=== PATIENT | male | born 1955 | race Two or more races ===

== ENCOUNTER 2022-06-24 10:29 | Outpatient (REF) | payer MEDICARE, MEDICAID, SELFPAY ==
[2022-06-24 11:39] LABS: MANUAL DIFF FLAG NO
[2022-06-24 11:55] LABS: Basophils Percent Auto 0.8 % (0-2); Eosinophils Absolute Auto 0.7 X10*3/uL (0.0-0.4); Eosinophils Percent Auto 12.5 % (0-4); Hematocrit 45.6 % (42.0-52.0); Imm Gran Abs Auto 0.02 X10*3/uL (0.00-0.03); Imm Gran Pct Auto 0.4 % (0.0-0.4); Lymphocytes Absolute Auto 1.4 X10*3/uL (1.2-4.9); Lymphocytes Percent Auto 26.6 % (20-40); Mean Corpuscular HGB Conc 32.9 g/dl (31.0-36.0); Mean Corpuscular Hemoglobin 28.9 pg (27.0-33.0); Mean Corpuscular Volume 87.9 fL (80.0-98.0); Mean Platelet Volume 9.5 fL (9.4-12.4); Monocytes Absolute Auto 0.5 X10*3/uL (0.1-1.2); Monocytes Percent Auto 9.4 % (2-11); Neutrophils Absolute Auto 2.7 x10*3/uL (2.0-8.3); Neutrophils Percent Auto 50.3 % (45-73); Platelet Count 242 X10*3/uL (160-400); Red Blood Count 5.19 X10*6/uL (4.60-5.80); White Blood Count 5.3 X10*3/uL (4.8-10.8)
[2022-06-24 12:28] LABS: Alanine Aminotransferase 23 U/L (0-40); Anion Gap 11 (12-20); Aspartate Amino Transferase 20 U/L (5-37); Blood Urea Nitrogen 14 mg/dL (9-16); Carbon Dioxide 27 mmol/L (22-29); Chloride 106 mmol/L (96-108); Cholesterol 189 mg/dL; Estimated Glomerular Filt Rate > 60; Glucose Fasting 85 mg/dL (60-99); HDL Cholesterol 44 mg/dL; LDL Cholesterol Calculated 125 mg/dl; Potassium 4.3 mmol/L (3.3-5.1); Sodium 140 mmol/L (135-145); Triglycerides 100 mg/dL
== END 2022-06-24 10:30 | disposition home or self-care (01) ==
LOC: HO.HMGCLDS 10:29
PROVIDERS: PCP Internal Medicine; Visit Provider Internal Medicine
DX: Z00.01 Encounter for general adult medical examination with abnormal findings (principal); K22.4 Dyskinesia of esophagus; K21.9 Gastro-esophageal reflux disease without esophagitis; D12.6 Benign neoplasm of colon, unspecified; E66.9 Obesity, unspecified; Z12.5 Encounter for screening for malignant neoplasm of prostate
CPT/HCPCS: 36415; 80048; 80061; 84153; 84450; 84460; 85025

== ENCOUNTER 2024-01-01 10:45 | Outpatient (AMB) | payer MEDICARE, MEDICAID, SELFPAY ==
--- NOTE | 2024-01-01 11:27 | MHC.PC.OV ---
Vital Signs 01/01/24 11:28 Height 5 ft 4 in Weight 191 lb BMI 32.8 BP 146/82 H Blood Pressure Location Rt brachial Position Sitting Pulse 68 Pulse Source Pulse Oximeter Pulse Oximetry (%) 98 Oxygen Delivery Method Room Air Intake Visit Reasons: ANNUAL Intake Note: Pt is here today for his PE: Last colonoscopy 08/23/18 Allergies acetaminophen [Percocet] Allergy (Unknown, Verified 01/01/24 11:35) stomach upset oxycodone [Percocet] Allergy (Unknown, Verified 01/01/24 11:35) stomach upset Medication List - Last Reconciled 01/01/24 by Dang Almonte MD omeprazole 20 mg PO DAILY Tobacco use date assessed: 01/01/24 Fall risk assessment: No Falls in past year Last assessed Fall Risk: 01/01/24 Dental Screening Dental Screen Date: 01/01/24 Did you have a dental visit in the last 12 months?: No Did you have a dental problem in the last 6 months where you did not have access to dental care?: No HPI ANNUAL HPI Details 68-year-old male, with GERD, currently on omeprazole 20 mg taken once a day, prescribed by Dr. Diaz, here today for physical exam. His last screening colonoscopy was done on 08/23/[address] Diaz, with fragments of tubular adenoma removed, repeat colonoscopy due again this year. Feels well, no complaints at present time. He does not want to get any vaccines [facility] Medical History (Updated 01/08/24 @ 00:27 by Dang Almonte MD) Essential hypertension History of adenomatous polyp of colon Obesity (BMI 30.0-34.9) Esophageal dysmotility Immunization refused Iron deficiency anemia GERD without esophagitis Hiatal hernia Tubular adenoma of colon Family History Brother Substance use disorder Brother Substance use disorder Mother Mental health disorder Social History Housing: Apartment Patient Tobacco Use Status: Former Tobacco user e-Cigarette/Vaping Use: Never Used service: No Current occupational status: retired Cognitive needs: No Hearing needs: No Vision needs: Yes Questionnaire PHQ-9 Over the last 2 weeks, how often have you been bothered by any of the following problems? 1. Little interest or pleasure in doing things: not at all 2. Feeling down, depressed, or hopeless: not at all 3. Trouble falling or staying asleep, or sleeping too much: not at all 4. Feeling tired or having little energy: not at all 5. Poor appetite or overeating: not at all 6. Feeling bad about yourself - or that you are a failure or have let yourself or your family down: not at all 7. Trouble concentrating on things, such as reading the newspaper or watching television: not at all 8. Moving or speaking so slowly that other people could have noticed. Or the opposite - being so fidgety or restless that you have been moving around a lot more than usual: not at all 9. Thoughts that you would be better off or of hurting yourself in some way: not at all Total score: 0 Depression Screening Interpretation: Negative Depression Screening Done: Yes 63915 - PHQ-9 Billing: Yes Source: Developed by Drs. Toby Shrestha, Liza Aviles, Hema Vila and colleagues, with an educational alfreda from [employer]. Thrive Questionnaire Date Thrive assessed: 01/01/24 I am a: Patient What is your living situation today?: I have a steady place to live Within the past 12 months, did the food you bought not last and you didn't have the money to get more?: Never true Within the past 12 months, did you worry whether your food would run out before you got money to buy more?: Never true Do you have trouble paying for medicines?: No Do you have trouble getting transportation to medical appointments?: No Do you have trouble paying your heating and electricity bill?: No Do you have trouble taking care of your child, family member or friend?: No Do you have trouble with day-to-day activities such as bathing, preparing meals, shopping, managing finances, etc.?: No Are you currently unemployed and looking for a job?: No Are you interested in more education?: No THRIVE Score: 0 AUDIT C Alcohol Use Questionnaire (AUDIT-C) 1. How often do you have a drink containing alcohol?: Never Total Score: 0 LE-7 AMB Questionnaire LE-7 Date LE - 7 assessed: 01/01/24 Feeling nervous, anxious, or on edge: 0 = Not at all Not being able to stop or control worryin = Not at all Worrying too much about different things: 0 = Not at all Trouble relaxin = Not at all Being so restless that it is hard to sit still: 0 = Not at all Becoming easily annoyed or irritable: 0 = Not at all Feeling afraid as if something awful might happen: 0 = Not at all Total LE-7 score (0-4 normal; 5-9 mild; 10-14 moderate; 15-21 severe): 0 Source: Developed by Drs. Toby Shrestha, Liza Aviles, Hema Vila and colleagues, with an educational alfreda from [employer]. LE-7 Assessment Billing LE-7 Assessment Tool: LE-7 Assessment 24146 Review of Systems Const Reports no additional complaints, Denies fatigue, Denies headache(s) and Denies weakness Eyes Details: Has an appointment with [facility] for his routine eye checks Reports blurry vision ENT Denies dysphagia, Denies dizziness and Denies headache(s) Card Denies chest pain, Denies lightheadedness, Denies palpitations and Denies dyspnea Resp Denies chest congestion, Denies cough, Denies dyspnea and Denies wheezing GI Denies melena, Denies hematochezia, Denies change in bowel habits, Denies dysphagia and Reports heartburn (Takes omeprazole which has been helping control) Denies hematuria, Denies difficulty urinating, Denies dysuria, Denies urinary frequency and Denies urinary urgency Musc Reports no additional complaints Skin/Breast Denies breast pain, Denies breast mass, Denies lesions and Denies rash Neuro Denies dizziness, Denies headache(s) and Denies weakness Psych Reports no additional complaints Endo Denies fatigue, Denies polydipsia, Denies polyuria and Denies palpitations Davidson/Lymph Denies easy bruising Aller/Immun Denies seasonal rhinorrhea and Denies wheezing Physical exam (Primary Care) Vital Signs: Last Vital Signs Pulse 68 01/01/24 11:28 BP 146/82 H 01/01/24 11:28 Pulse Ox 98 01/01/24 11:28 Oxygen Delivery Method Room Air 01/01/24 11:28 BMI result Body Mass Index 32.8 Tobacco/Smoking Status: Tobacco use Status Tobacco use date assessed 01/01/24 01/01/24 11:30 Patient Tobacco Use Status Former Tobacco user 01/01/24 11:30 e-Cigarette/Vaping Use Never Used 01/01/24 11:30 PHQ-9: PHQ-9 Score PHQ-9: Total score 0 01/01/24 11:38 Depression Screening Interpretation: Negative Thrive Assessment: Date of Thrive Assessment Date Thrive assessed 01/01/24 01/01/24 11:30 Const General: no acute distress and alert Nutritional Appearance: obese Orientation/consciousness: patient oriented x3 HENMT Head: Yes normal to inspection and Yes atraumatic Ears: external ears normal, TM's normal bilaterally and EAC's normal General nose exam: Normal external nose present and No nasal discharge present Face and sinus: Yes face symmetric Mouth: Normal oral and palatal mucosa present, oropharynx normal and moist mucous membranes Eyes General: appearance normal, both eyes and all related structures Neck Neck: Yes full ROM, Yes no lymphadenopathy and Yes supple Thyroid: Thyroid normal Chest Chest palpation & inspection: normal inspection of the chest Resp Effort & Inspection: normal respiratory effort and able to speak in complete sentences Auscultation: clear to auscultation bilaterally Cardio Rate: regular rate Rhythm: regular rhythm Heart sounds: S1 normal heart sound present and S2 normal heart sound present GI Inspection: Yes obesity Palpation (GI): Soft to palpation, nontender, no guarding and no masses Auscultation: normal bowel sounds General: Yes no CVA tenderness Male General Exam: Yes normal external exam Back/Spine/Pelvis Back: no CVA tenderness and No back tenderness Skin General skin exam: no rashes or lesions noted Neuro General: patient oriented x3, gait normal, moves all extremities, Normal light touch and pain sensation, no focal motor deficits and CN's II-XI intact bilaterally Extrem General: Yes full ROM, Yes no joint enlargement and Yes normal gait Psych Appearance: grossly normal Mental Status: mental status grossly normal Speech and movement: Normal speech and movement present Affect: normal affect Attitude: cooperative Thought process: Normal thought process present Coding Level of Care Code Est Pt Prev Care >65y(27402) Diagnoses Annual visit for general adult medical examination with abnormal findings Z00.01 Essential hypertension I10 GERD without esophagitis K21.9 History of adenomatous polyp of colon Z86.0101 Obesity (BMI 30.0-34.9) E66.9 Additional Codes LE-7 Assessment Billing - LE-7 Assessment Tool: LE-7 Assessment 16203 ([id number]) Assessment & Plan Assessment & Plan (1) Annual visit for general adult medical examination with abnormal findings: Code(s): Z00.01 - Encounter for general adult medical examination with abnormal findings Plan: Will check appropriate labs. Recommended dental visit every 6 months and regular eye exams, at least every 2 years. Take adequate calcium in diet and vitamin-D 3 at 2000 IU per cap once a day, in addition to weight-bearing exercises to help maintain good muscle tone and weight control. Instructed to do self testicular exam to check for any mass.. Patient declines all vaccinations. Be he states he will be scheduling an appointment already with Dr. Diaz this year to discuss about getting another repeat colonoscopy screening (2) Essential hypertension: Code(s): I10 - Essential (primary) hypertension Category: Medical Plan: Blood pressure has been elevated. Patient currently asymptomatic. Will start him on lisinopril 5 mg per tablet taken once a day in a.m.. Discussed possible side effects of medication which may include a dry cough, swelling, rash. See nurse navigator in a month to check blood pressure. (3) GERD without esophagitis: Code(s): K21.9 - Gastro-esophageal reflux disease without esophagitis Category: Medical Plan: Followed by Dr. Diaz, currently on omeprazole. (4) History of adenomatous polyp of colon: Code(s): Z86.0101 - Personal history of adenomatous and serrated colon polyps Category: Medical Plan: Due for repeat colonoscopy screening this year with Dr. Diaz. Patient states he will call his office and schedule an appointment (5) Obesity (BMI 30.0-34.9): Code(s): E66.9 - Obesity, unspecified Category: Medical Plan: Discussed need to increase activity and wt reduction. Recommended focusing on improving your health instead of dieting. : Eat Mediterranean diet, limit foods high in fat, sugar, and calories, eat slowly, pay attention to portion sizes, plan your meals ahead of time, start regular physical activity 150 minutes of moderate intensity exercise or 90 minutes/week of vigorous exercise and increase water intake. Orders: Orders Complete Blood Count Auto Diff 01/01/24 E66.9 - Obesity, unspecified, K21.9 - Gastro-esophageal reflux disease without esophagitis, Z00.01 - Encounter for general adult medical examination with abnormal findings, Z12.5 - Encounter for screening for malignant neoplasm of prostate, Z13.220 - Encounter for screening for lipoid disorders, Z86.0101 - Personal history of adenomatous and serrated colon polyps Lipid Panel 01/01/24 E66.9 - Obesity, unspecified, K21.9 - Gastro-esophageal reflux disease without esophagitis, Z00.01 - Encounter for general adult medical examination with abnormal findings, Z12.5 - Encounter for screening for malignant neoplasm of prostate, Z13.220 - Encounter for screening for lipoid disorders, Z86.0101 - Personal history of adenomatous and serrated colon polyps Aspartate Amino Transferase 01/01/24 E66.9 - Obesity, unspecified, K21.9 - Gastro-esophageal reflux disease without esophagitis, Z00.01 - Encounter for general adult medical examination with abnormal findings, Z12.5 - Encounter for screening for malignant neoplasm of prostate, Z13.220 - Encounter for screening for lipoid disorders, Z86.0101 - Personal history of adenomatous and serrated colon polyps Basic Metabolic Panel Fasting 01/01/24 E66.9 - Obesity, unspecified, K21.9 - Gastro-esophageal reflux disease without esophagitis, Z00.01 - Encounter for general adult medical examination with abnormal findings, Z12.5 - Encounter for screening for malignant neoplasm of prostate, Z13.220 - Encounter for screening for lipoid disorders, Z86.0101 - Personal history of adenomatous and serrated colon polyps PSA,Total (Free>4and<10) 01/01/24 E66.9 - Obesity, unspecified, K21.9 - Gastro-esophageal reflux disease without esophagitis, Z00.01 - Encounter for general adult medical examination with abnormal findings, Z12.5 - Encounter for screening for malignant neoplasm of prostate, Z13.220 - Encounter for screening for lipoid disorders, Z86.0101 - Personal history of adenomatous and serrated colon polyps Alanine Aminotransferase 01/01/24 E66.9 - Obesity, unspecified, K21.9 - Gastro-esophageal reflux disease without esophagitis, Z00.01 - Encounter for general adult medical examination with abnormal findings, Z12.5 - Encounter for screening for malignant neoplasm of prostate, Z13.220 - Encounter for screening for lipoid disorders, Z86.0101 - Personal history of adenomatous and serrated colon polyps Vitamin D 25-OH Total 01/01/24 E66.9 - Obesity, unspecified, K21.9 - Gastro-esophageal reflux disease without esophagitis, Z00.01 - Encounter for general adult medical examination with abnormal findings, Z12.5 - Encounter for screening for malignant neoplasm of prostate, Z13.220 - Encounter for screening for lipoid disorders, Z86.0101 - Personal history of adenomatous and serrated colon polyps Medications: New lisinopril 5 mg PO DAILY 30 tabs 1RF
[2024-01-01 11:28] VITALS: BP 146/82; PULSE 68; O2SAT 98; BMI 32.8
== END 2024-01-01 11:59 | disposition home or self-care (01) ==
LOC: HO.HMCC 10:46
PROVIDERS: PCP Internal Medicine; Visit Provider Internal Medicine
DX: Z00.00 Encounter for general adult medical examination without abnormal findings (principal); I10 Essential (primary) hypertension; E66.9 Obesity, unspecified; Z68.32 Body mass index [BMI] 32.0-32.9, adult; K21.9 Gastro-esophageal reflux disease without esophagitis; Z86.0101 Personal history of adenomatous and serrated colon polyps

== ENCOUNTER → 2024-01-01 10:45 | Outpatient (BNVA) | payer MEDICARE, MEDICAID, SELFPAY | PROVIDERS: PCP Internal Medicine; Visit Provider Internal Medicine | DX: Z00.01 Encounter for general adult medical examination with abnormal findings (principal); I10 Essential (primary) hypertension; K21.9 Gastro-esophageal reflux disease without esophagitis; E66.9 Obesity, unspecified; Z86.0101 Personal history of adenomatous and serrated colon polyps | CPT/HCPCS: 96127; 99397 ==

== ENCOUNTER 2024-01-31 07:36 | Outpatient (REF) | payer MEDICARE, MEDICAID, SELFPAY ==
[2024-01-31 10:17] LABS: MANUAL DIFF FLAG NO
[2024-01-31 10:31] LABS: Basophils Absolute Auto 0.1 X10*3/uL (0.0-0.2); Basophils Percent Auto 0.8 % (0-2); Eosinophils Absolute Auto 0.7 X10*3/uL (0.0-0.4); Hematocrit 44.3 % (42.0-52.0); Hemoglobin 14.7 g/dl (14.0-18.0); Imm Gran Abs Auto 0.02 X10*3/uL (0.00-0.03); Imm Gran Pct Auto 0.3 % (0.0-0.4); Lymphocytes Absolute Auto 1.8 X10*3/uL (1.2-4.9); Lymphocytes Percent Auto 29.1 % (20-40); Mean Corpuscular HGB Conc 33.2 g/dl (31.0-36.0); Mean Corpuscular Hemoglobin 29.1 pg (27.0-33.0); Mean Corpuscular Volume 87.7 fL (80.0-98.0); Mean Platelet Volume 9.7 fL (9.4-12.4); Monocytes Absolute Auto 0.5 X10*3/uL (0.1-1.2); Monocytes Percent Auto 8.7 % (2-11); Neutrophils Absolute Auto 3.1 x10*3/uL (2.0-8.3); Neutrophils Percent Auto 50.1 % (45-73); Platelet Count 219 X10*3/uL (160-400); Red Blood Count 5.05 X10*6/uL (4.60-5.80); Red Cell Distribution Width 14.5 % (11.0-16.0); White Blood Count 6.1 X10*3/uL (4.8-10.8)
[2024-01-31 11:09] LABS: PSA,Total (Free>4and<10) 0.58 ng/mL (0.00-4.00)
[2024-01-31 11:20] LABS: Alanine Aminotransferase 29 U/L (0-40); Anion Gap 8 (12-20); Aspartate Amino Transferase 26 U/L (5-37); Blood Urea Nitrogen 16 mg/dL (9-16); Carbon Dioxide 28 mmol/L (22-29); Chloride 110 mmol/L (96-108); Cholesterol 164 mg/dL (<200); Estimated Glomerular Filt Rate > 60; Glucose Fasting 93 mg/dL (60-99); HDL Cholesterol 46 mg/dL (>40); LDL Cholesterol Calculated 104 mg/dL (<100); Potassium 4.1 mmol/L (3.3-5.1); Sodium 142 mmol/L (135-145); Triglycerides 73 mg/dL (<150); Vitamin D 25-OH Total 63.1 ng/mL (>30)
== END 2024-01-31 07:37 | disposition home or self-care (01) ==
LOC: HO.HMGCLDS 07:36
PROVIDERS: PCP Internal Medicine; Visit Provider Internal Medicine
DX: Z00.01 Encounter for general adult medical examination with abnormal findings (principal); Z13.220 Encounter for screening for lipoid disorders; Z12.5 Encounter for screening for malignant neoplasm of prostate; E66.9 Obesity, unspecified; Z86.0101 Personal history of adenomatous and serrated colon polyps; K21.9 Gastro-esophageal reflux disease without esophagitis
CPT/HCPCS: 36415; 80048; 80061; 82306; 84153; 84450; 84460; 85025

== ENCOUNTER 2024-07-03 12:00 | Outpatient (AMB) | payer MEDICARE, MEDICAID, SELFPAY ==
--- NOTE | 2024-07-03 12:14 | A.OFFPC_ITS ---
Vital Signs 07/03/24 12:17 07/03/24 12:41 Height 5 ft 4 in Weight 187 lb BMI 32.1 BP 142/80 H 135/80 Blood Pressure Location Rt brachial Rt brachial Position Sitting Sitting Respiration 16 Pulse 75 Pulse Source Pulse Oximeter Temp 98.0 F Temp Source Oral Pulse Oximetry (%) 97 Oxygen Delivery Method Room Air Intake Visit Reasons: Rt eye cataract 07/09/Lt eye 08/01 Dr. Caldwell Intake Note: Pt is here today for Pre Op clearance for right eye cataract surgery on 07/09/24 and 08/01/[address] Caldwell. Allergies acetaminophen [Percocet] Allergy (Unknown, Verified 07/03/24 12:37) stomach upset oxycodone [Percocet] Allergy (Unknown, Verified 07/03/24 12:37) stomach upset Medication List - Last Reconciled 07/03/24 by Dang Almonte MD omeprazole 20 mg PO DAILY Tobacco use date assessed: 07/03/24 Fall risk assessment: No Falls in past year Last assessed Fall Risk: 07/03/24 Dental Screening Dental Screen Date: 07/03/24 Did you have a dental visit in the last 12 months?: No Did you have a dental problem in the last 6 months where you did not have access to dental care?: No Was dental information given to patient?: No HPI Rt eye cataract 07/09/Lt eye 08/01 Dr. Caldwell HPI Details 68-year-old male with history of hyperte nsion, and esophageal dysmotility, iron-deficiency anemia, chronic GERD, here today for preoperative examination for cataract surgery OS, scheduled for 07/09/2024, requested by Dr. Caldwell. He states that he has been feeling well except for an occasional episodes of heartburn. Requesting refill on his omeprazole. Blood pressure elevated today, has not been taking his lisinopril for the last several months now. Denies headache, chest pain, lightheadedness, or shortness of breath. He is not on any blood thinners, no other complaints noted at present time He is due for repeat colonoscopy, due to history of adenomatous polyp of colon removed on last procedure done in 2019. Patient however would like to hold off on getting a referral to get repeat colonoscopy done. [facility] Medical History Essential hypertension History of adenomatous polyp of colon Obesity (BMI 30.0-34.9) Esophageal dysmotility Immunization refused Iron deficiency anemia GERD without esophagitis Hiatal hernia Tubular adenoma of colon Family History Brother Substance use disorder Brother Substance use disorder Mother Mental health disorder Social History Housing: Apartment Patient Tobacco Use Status: Former Tobacco user e-Cigarette/Vaping Use: Never Used service: No Current occupational status: retired Cognitive needs: No Hearing needs: No Vision needs: Yes Questionnaire PHQ-9 Over the last 2 weeks, how often have you been bothered by any of the following problems? 1. Little interest or pleasure in doing things: not at all 2. Feeling down, depressed, or hopeless: not at all 3. Trouble falling or staying asleep, or sleeping too much: not at all 4. Feeling tired or having little energy: not at all 5. Poor appetite or overeating: not at all 6. Feeling bad about yourself - or that you are a failure or have let yourself or your family down: not at all 7. Trouble concentrating on things, such as reading the newspaper or watching television: not at all 8. Moving or speaking so slowly that other people could have noticed. Or the opposite - being so fidgety or restless that you have been moving around a lot more than usual: not at all 9. Thoughts that you would be better off or of hurting yourself in some way: not at all Total score: 0 Depression Screening Interpretation: Negative Depression Screening Done: Yes 61374 - PHQ-9 Billing: Yes Source: Developed by Drs. Toby Shrestha, Liza Aviles, Hema Vila and colleagues, with an educational alfreda from [employer]. Thrive Questionnaire Date Thrive assessed: 07/03/24 I am a: Patient What is your living situation today?: I have a steady place to live Within the past 12 months, did the food you bought not last and you didn't have the money to get more?: Never true Within the past 12 months, did you worry whether your food would run out before you got money to buy more?: Never true Do you have trouble paying for medicines?: No Do you have trouble getting transportation to medical appointments?: No Do you have trouble paying your heating and electricity bill?: No Do you have trouble taking care of your child, family member or friend?: No Do you have trouble with day-to-day activities such as bathing, preparing meals, shopping, managing finances, etc.?: No Are you currently unemployed and looking for a job?: No Are you interested in more education?: No Please select the resources that you would like help with: None Currently or been in a relationship where the following occur: No concerns reported THRIVE Score: 0 AUDIT C Alcohol Use Questionnaire (AUDIT-C) 1. How often do you have a drink containing alcohol?: Never 3. How often do you have six or more drinks on one occasion?: Never Total Score: 0 Score Reviewed/Action Taken: Yes LE-7 AMB Questionnaire LE-7 Date LE - 7 assessed: 07/03/24 Feeling nervous, anxious, or on edge: 0 = Not at all Not being able to stop or control worryin = Not at all Worrying too much about different things: 0 = Not at all Trouble relaxin = Not at all Being so restless that it is hard to sit still: 0 = Not at all Becoming easily annoyed or irritable: 0 = Not at all Feeling afraid as if something awful might happen: 0 = Not at all Total LE-7 score (0-4 normal; 5-9 mild; 10-14 moderate; 15-21 severe): 0 Source: Developed by Drs. Toby Shrestha, Liza Aviles, Hema Vila and colleagues, with an educational alfreda from [employer]. LE-7 Assessment Billing LE-7 Assessment Tool: LE-7 Assessment 48079 Review of Systems Const Reports no additional complaints and Denies fatigue Eyes Details: Has an appointment with [facility] for his routine eye checks Reports blurry vision ENT Denies dysphagia and Denies dizziness Card Denies chest pain, Denies lightheadedness, Denies palpitations and Denies dyspnea Resp Denies chest congestion, Denies cough, Denies dyspnea and Denies wheezing GI Denies melena, Denies hematochezia, Denies change in bowel habits, Denies dysphagia and Reports heartburn (Takes omeprazole which has been helping control) Denies hematuria, Denies difficulty urinating, Denies dysuria, Denies urinary frequency and Denies urinary urgency Musc Reports no additional complaints Skin/Breast Denies lesions and Denies rash Neuro Denies dizziness Psych Reports no additional complaints Endo Denies fatigue, Denies polydipsia, Denies polyuria and Denies palpitations Davidson/Lymph Denies easy bruising Aller/Immun Denies seasonal rhinorrhea and Denies wheezing Physical exam (Primary Care) Vital Signs: Last Vital Signs Temp 98.0 F 07/03/24 12:17 Pulse 75 07/03/24 12:17 Resp 16 07/03/24 12:17 BP 142/80 H 07/03/24 12:17 Pulse Ox 97 07/03/24 12:17 Oxygen Delivery Method Room Air 07/03/24 12:17 BMI result Body Mass Index 32.1 Tobacco/Smoking Status: Tobacco use Status Tobacco use date assessed 07/03/24 07/03/24 12:18 Patient Tobacco Use Status Former Tobacco user 07/03/24 12:18 e-Cigarette/Vaping Use Never Used 07/03/24 12:18 PHQ-9: PHQ-9 Score PHQ-9: Total score 0 07/03/24 12:29 Depression Screening Interpretation: Negative Thrive Assessment: Date of Thrive Assessment Date Thrive assessed 07/03/24 07/03/24 12:18 Currently or been in a relationship where the following occur: No concerns reported Const General: no acute distress and alert Nutritional Appearance: obese Orientation/consciousness: patient oriented x3 HENMT Head: Yes normal to inspection Ears: external ears normal, TM's normal bilaterally and EAC's normal General nose exam: Normal external nose present Face and sinus: Yes face symmetric Mouth: Normal oral and palatal mucosa present, oropharynx normal and moist mucous membranes Eyes General: appearance normal, both eyes and all related structures Neck Neck: Yes full ROM, Yes no lymphadenopathy and Yes supple Thyroid: Thyroid normal Chest Chest palpation & inspection: normal inspection of the chest Resp Effort & Inspection: normal respiratory effort and able to speak in complete sentences Auscultation: clear to auscultation bilaterally Cardio Rate: regular rate Rhythm: regular rhythm Heart sounds: S1 normal heart sound present and S2 normal heart sound present GI Inspection: Yes obesity Palpation (GI): Soft to palpation, nontender, no guarding and no masses Auscultation: normal bowel sounds General: Yes no CVA tenderness Male General Exam: Yes normal external exam Back/Spine/Pelvis Back: no CVA tenderness and No back tenderness Skin General skin exam: no rashes or lesions noted Neuro General: patient oriented x3, gait normal, moves all extremities, Normal light touch and pain sensation, no focal motor deficits and CN's II-XI intact bila terally Extrem General: Yes full ROM, Yes no joint enlargement and Yes normal gait Psych Appearance: grossly normal Mental Status: mental status grossly normal Speech and movement: Normal speech and movement present Affect: normal affect Attitude: cooperative Thought process: Normal thought process present Coding Level of Care Code Est Pt Level 4 (53041) Diagnoses Encounter for pre-operative examination Z01.818 Essential hypertension I10 GERD without esophagitis K21.9 History of adenomatous polyp of colon Z86.0101 Additional Codes LE-7 Assessment Billing - LE-7 Assessment Tool: LE-7 Assessment 77039 ([id number]) PHQ-9 - 56995 - PHQ-9 Billing: Yes ([id number]) Assessment & Plan Assessment & Plan (1) Encounter for pre-operative examination: Code(s): Z01.818 - Encounter for other preprocedural examination Plan: 68 year old male, presents for pre-operative clearance for acataract surgery requested by Dr. Caldwell. Has history of hypertension , restarted back on lisinopril 5 mg daily. He denies any pulmonary or cardiac symptoms. He is not on any blood thinners. Preoperative exam is unremarkable. Patient with a low cardiac risk index for proposed surgery (2) Essential hypertension: Code(s): I10 - Essential (primary) hypertension Category: Medical Plan: Blood pressure running high, has been off his medication for several months now, will restart him back on lisinopril 5 mg to take once a day. Reinforced importance of following a low-salt diet and getting regular exercise. Will see him back for follow-up in six-months after repeat fasting labs done to check basic metabolic panel and lipids (3) GERD without esophagitis: Code(s): K21.9 - Gastro-esophageal reflux disease without esophagitis Category: Medical Plan: Prescription refill was sent for omeprazole 20 mg per capsule to take once a day as needed only for episodes of heartburn (4) History of adenomatous polyp of colon: Code(s): Z86.0101 - Personal history of adenomatous and serrated colon polyps Category: Medical Plan: Patient is overdue to get his repeat colonoscopy. However he does not want to have it scheduled at present time. Will revisit this again on his next appointment in December 2024 Orders: Orders Basic Metabolic Panel Fasting 12/28/24 E66.9 - Obesity, unspecified, I10 - Essential (primary) hypertension, K21.9 - Gastro-esophageal reflux disease without esophagitis, K44.9 - Diaphragmatic hernia without obstruction or gangrene, Z86.0101 - Personal history of adenomatous and serrated colon polyps Aspartate Amino Transferase 12/28/24 E66.9 - Obesity, unspecified, I10 - Essential (primary) hypertension, K21.9 - Gastro-esophageal reflux disease without esophagitis, K44.9 - Diaphragmatic hernia without obstruction or gangrene, Z01.818 - Encounter for other preprocedural examination, Z86.0101 - Personal history of adenomatous and serrated colon polyps Alanine Aminotransferase 12/28/24 E66.9 - Obesity, unspecified, I10 - Essential (primary) hypertension, K21.9 - Gastro-esophageal reflux disease without esophagitis, K44.9 - Diaphragmatic hernia without obstruction or gangrene, Z01.818 - Encounter for other preprocedural examination, Z86.0101 - Personal history of adenomatous and serrated colon polyps Complete Blood Count Auto Diff 12/28/24 E66.9 - Obesity, unspecified, I10 - Essential (primary) hypertension, K21.9 - Gastro-esophageal reflux disease without esophagitis, K44.9 - Diaphragmatic hernia without obstruction or gangrene, Z01.818 - Encounter for other preprocedural examination, Z86.0101 - Personal history of adenomatous and serrated colon polyps Lipid Panel 12/28/24 E66.9 - Obesity, unspecified, I10 - Essential (primary) hypertension, K21.9 - Gastro-esophageal reflux disease without esophagitis, K44.9 - Diaphragmatic hernia without obstruction or gangrene, Z01.818 - Encounter for other preprocedural examination, Z86.0101 - Personal history of adenomatous and serrated colon polyps PSA,Total (Free>4and<10) 12/28/24 E66.9 - Obesity, unspecified, I10 - Essential (primary) hypertension, K21.9 - Gastro-esophageal reflux disease without esophagitis, K44.9 - Diaphragmatic hernia without obstruction or gangrene, Z01.818 - Encounter for other preprocedural examination, Z86.0101 - Personal history of adenomatous and serrated colon polyps Medications: New lisinopril 5 mg PO DAILY 30 tabs 5RF Changed From omeprazole 20 mg PO DAILY To omeprazole 20 mg PO DAILY PRN 30 caps 0RF Heartburn symptom
[2024-07-03 12:17] VITALS: BP 142/80; PULSE 75; RESP 16; TEMP 36.7; O2SAT 97; BMI 32.1
[2024-07-03 12:41] VITALS: BP 135/80
== END 2024-07-03 13:44 | disposition home or self-care (01) ==
LOC: HO.HMCC 12:01
PROVIDERS: PCP Internal Medicine; Visit Provider Internal Medicine
DX: Z01.818 Encounter for other preprocedural examination (principal); I10 Essential (primary) hypertension; K21.9 Gastro-esophageal reflux disease without esophagitis; Z86.0101 Personal history of adenomatous and serrated colon polyps

== ENCOUNTER → 2024-07-03 12:00 | Outpatient (BNVA) | payer MEDICARE, MEDICAID, SELFPAY | PROVIDERS: PCP Internal Medicine; Visit Provider Internal Medicine | DX: Z01.818 Encounter for other preprocedural examination (principal); H26.9 Unspecified cataract; I10 Essential (primary) hypertension; K21.9 Gastro-esophageal reflux disease without esophagitis; Z86.0101 Personal history of adenomatous and serrated colon polyps | CPT/HCPCS: 96127; 99212 ==

== ENCOUNTER 2024-08-27 09:12 | Outpatient (AMB) | payer MEDICARE, MEDICAID, SELFPAY ==
--- NOTE | 2024-08-27 09:34 | A.OFFPC_ITS ---
Vital Signs 08/27/24 09:38 Height 5 ft 4 in Weight 179 lb BMI 30.7 BP 122/70 Blood Pressure Location Lt brachial Position Sitting Respiration 16 Pulse 77 Pulse Source Pulse Oximeter Temp 97.9 F Temp Source Oral Pulse Oximetry (%) 99 Oxygen Delivery Method Room Air Intake Visit Reasons: Coughing Intake Note: Pt is here today c/o dry cough no improvement mainly at night Allergies acetaminophen (Percocet) Allergy (Unknown, Verified 08/27/24 09:50) stomach upset oxycodone (Percocet) Allergy (Unknown, Verified 08/27/24 09:50) stomach upset Medication List - Last Reconciled 08/27/24 by Dang Almonte MD lisinopril 5 mg PO DAILY omeprazole 20 mg PO DAILY PRN Tobacco use date assessed: 08/27/24 Fall risk assessment: No Falls in past year Last assessed Fall Risk: 08/27/24 Dental Screening Dental Screen Date: 08/27/24 Did you have a dental visit in the last 12 months?: No Did you have a dental problem in the last 6 months where you did not have access to dental care?: No Was dental information given to patient?: Patient has dentist HPI Coughing HPI Details 68-year-old male, former tobacco user, here today complaining of a nagging dry cough which is mainly present at night. He has taken oral dxhf-[id number]-ibvlztd cough medications which has not afford any improvement. There is no accompanying shortness of breath, no fever,, no abnormal weight loss reported. He has been diagnosed to have GERD without esophagitis currently on omeprazole 20 mg which he takes only as needed. Does complain of in to frequently clear his throat in the morning. He also would like to have on left lower side of abdomen checked. Patient states is more prominent when strains or lifts anything heavy. Denies any groin pain, no alteration in bowel habits reported. [facility] Medical History Essential hypertension History of adenomatous polyp of colon Obesity (BMI 30.0-34.9) Esophageal dysmotility Immunization refused Iron deficiency anemia GERD without esophagitis Hiatal hernia Tubular adenoma of colon Family History Brother Substance use disorder Brother Substance use disorder Mother Mental health disorder Social History Housing: Apartment Patient Tobacco Use Status: Former Tobacco user e-Cigarette/Vaping Use: Never Used service: No Current occupational status: retired Cognitive needs: No Hearing needs: No Vision needs: Yes Questionnaire PHQ-9 Over the last 2 weeks, how often have you been bothered by any of the following problems? Depression Screening Interpretation: Negative Depression Screening Done: Yes Source: Developed by Drs. Toby Shrestha, Hema Lozano and colleagues, with an educational alfreda from [employer]. Thrive Questionnaire Date Thrive assessed: 07/03/24 I am a: Patient What is your living situation today?: I have a steady place to live Within the past 12 months, did the food you bought not last and you didn't have the money to get more?: Never true Within the past 12 months, did you worry whether your food would run out before you got money to buy more?: Never true Do you have trouble paying for medicines?: No Do you have trouble getting transportation to medical appointments?: No Do you have trouble paying your heating and electricity bill?: No Do you have trouble taking care of your child, family member or friend?: No Do you have trouble with day-to-day activities such as bathing, preparing meals, shopping, managing finances, etc.?: No Are you currently unemployed and looking for a job?: No Are you interested in more education?: No Please select the resources that you would like help with: None Currently or been in a relationship where the following occur: No concerns reported THRIVE Score: 0 LE-7 AMB Questionnaire LE-7 Date LE - 7 assessed: 07/03/24 Source: Developed by Drs. Toby Shrestha, Hema Lozano and colleagues, with an educational alfreda from [employer]. Review of Systems Const All systems reviewed & are unremarkable except as noted in HPI and below Physical exam (Primary Care) Vital Signs: Last Vital Signs Temp 97.9 F 08/27/24 09:38 Pulse 77 08/27/24 09:38 Resp 16 08/27/24 09:38 BP 122/70 08/27/24 09:38 Pulse Ox 99 08/27/24 09:38 Oxygen Delivery Method Room Air 08/27/24 09:38 BMI result Body Mass Index 30.7 Tobacco/Smoking Status: Tobacco use Status Tobacco use date assessed 08/27/24 08/27/24 09:35 Patient Tobacco Use Status Former Tobacco user 08/27/24 09:35 e-Cigarette/Vaping Use Never Used 08/27/24 09:35 Depression Screening Interpretation: Negative Thrive Assessment: Date of Thrive Assessment Date Thrive assessed 07/03/24 08/27/24 09:35 Currently or been in a relationship where the following occur: No concerns reported Const General: no acute distress and alert Nutritional Appearance: obese Orientation/consciousness: patient oriented x3 HENMT General nose exam: Normal external nose present Face and sinus: Yes face symmetric Mouth: Normal oral and palatal mucosa present, oropharynx normal and moist mucous membranes Eyes General: appearance normal, both eyes and all related structures Neck Neck: Yes full ROM, Yes no lymphadenopathy and Yes supple Thyroid: Thyroid normal Resp Effort & Inspection: normal respiratory effort and able to speak in complete sentences Auscultation: clear to auscultation bilaterally Cardio Rate: regular rate Rhythm: regular rhythm Heart sounds: S1 normal heart sound present and S2 normal heart sound present GI Inspection: Yes obesity Palpation (GI): Soft to palpation, nontender, no guarding and no masses Auscultation: normal bowel sounds General: Yes no CVA tenderness Male General Exam: Yes normal external exam Back/Spine/Pelvis Back: no CVA tenderness and No back tenderness Neuro General: patient oriented x3, gait normal, moves all extremities, Normal light touch and pain sensation, no focal motor deficits and CN's II-XI intact bilaterally Extrem General: Yes full ROM, Yes no joint enlargement and Yes normal gait Coding Level of Care Code Est Pt Level 4 (46664) Diagnoses Left lower quadrant abdominal mass R19.04 Recurrent dry cough R05.8 Assessment & Plan Assessment & Plan (1) Left lower quadrant abdominal mass: Code(s): R19.04 - Left lower quadrant abdominal swelling, mass and lump Plan: Ultrasound of abdomen ordered , check for any hernia or soft tissue mass present (2) Recurrent dry cough: Code(s): R05.8 - Other specified cough Plan: Likely allergies, will try him on cetirizine 10 mg to take 1 tablet at bedtime Orders: Orders US abdomen complete 08/27/24 R19.04 - Left lower quadrant abdominal swelling, mass and lump Medications: New cetirizine 10 mg PO BEDTIME 30 tabs 0RF allergy symptoms
[2024-08-27 09:38] VITALS: BP 122/70; PULSE 77; RESP 16; TEMP 36.6; O2SAT 99; BMI 30.7
--- OUTSIDE RECORDS SUMMARY | 2024-08-27 09:46 | XMS_ITS | Patient Health Record ---
Author Organization [facility] Address [address] [place] [address] Care Team Providers Care Mold Stamper And Repairer Name Role Phone Dang Almonte MD Primary Care Provider Toby Hanley [phone] Allergies Allergen (clinical drug ingredient) Drug/Non Drug Allergy documented on EMR Reaction Allergy Type Onset Date Status acetaminophen / oxycodone Percocet Unknown Drug Allergy Active Reason For Referral No Information Medications Medication SIG (Take, Route, Frequency, Duration) Notes Start Date End Date Status Omeprazole 20 MG TAKE 1 CAPSULE BY MOUTH EVERY DAY for 90 Please tell patient to call for an appointment. Thanks Active Ibuprofen 200 MG 1 tablet with food o r milk as needed Orally prn Few times a week Active Proctofoam HC 1-1 % 1 application to affected area Rectal Three times a day for 10 days 08/29/2018 Active Immunizations Vaccine Route Administration Date Status Comme nts Influenza Unknown 12/26/2017 Refused Influenza Unknown 08/10/2018 Refused Social History Tobacco Use: Social History Observation Description Date Details (start date - stop date) Never Smoker NA - NA Tobacco Use/Smoking Question Answer Notes Patient is a nonsmoker Section Notes: Nonsmoker; no sig alcohol Nonsmoker; no sig alcohol Nonsmoker; no sig alcohol Problems Problem Type SNOMED Code ICD Code Onset Dates Problem Status W/U Status Risk Notes Problem 62424634 Epigastric abdom inal pain (R10.13) Active confirmed Problem 799529040 Gastro-esophagea l reflux disease without esophagitis (K21.9) Active confirmed Problem 339129098 Encounter for screening for malignant neoplasm of colon (Z12.11) Active confirmed Problem 423673606 History of adenomatous polyp of colon (Z86.010) Active confirmed Problem 124053031 Gastroesophageal reflux disease, esophagitis presence not specified (K21.9) Active confirmed Problem 29280606 Rectal bleed (K62.5) Active confirmed Plan Of Treatment Future Test Test Name Order Date COLONOSCOPY 03/07/2012 UPPER GI ENDOSCOPY 01/11/2017 COLONOSCOPY 08/10/2018 Insurance Providers Payer Name Payer Address Payer Phone Subscriber Number Group Number Insured Name Patient Relationship to Insured Coverage Start Date Coverage End Date MEDICARE OF [place] [address] [place] [address] [id number] OSMAN OWENS Self - patient is the insured MEDICAID OF [place] [address] [place] [phone] [id number] OSMAN OWENS Self - patient is the insured Medical (General) History Medical History History ICD Code Denies PR,DM,CVA,Lung disease,renal dise ase Colonoscopy 02/2012--Dr. Dave burton--1 tubular adenoma removed, diverticulosis, internal hemorrhoids EGD in 01/2017--small HH--ga stric biopies neg. for H.pylori, no esophagitis or Francis's esophagus Neg. abdominal ultrasound in 2016 Surgical History Surgery Date(Month/Year) Hernia repair--right inguinal 1996 Shoulder surgery-right 2009
== END 2024-08-27 10:06 | disposition home or self-care (01) ==
LOC: HO.HMCC 09:13
PROVIDERS: PCP Internal Medicine; Visit Provider Internal Medicine
DX: R19.04 Left lower quadrant abdominal swelling, mass and lump (principal); R05.8 Other specified cough

== ENCOUNTER → 2024-08-27 09:12 | Outpatient (BNVA) | payer MEDICARE, MEDICAID, SELFPAY | PROVIDERS: PCP Internal Medicine; Visit Provider Internal Medicine | DX: R19.04 Left lower quadrant abdominal swelling, mass and lump (principal); R05.8 Other specified cough | CPT/HCPCS: 99212 ==

== ENCOUNTER 2024-10-03 08:17 | Outpatient (REF) | payer MEDICARE, MEDICAID, SELFPAY ==
--- NOTE | ~2024-10-03 | US_ITS ---
CLINICAL HISTORY: R19.04 - Left lower quadrant abdominal swelling, mass and lump --- Additional Notes or Special Instructions: Complaining of a pulling mass on left lower abdomen , worse with cough, US limited soft tissues of the left lower quadrant at level of pulling sensation Comparison: None provided Findings: 1.2 x 2.5 x 1.6 cm mildly hyperechoic oval lesion in the subcutaneous fat (without internal vascularity) due to a lipoma. Otherwise no evidence of abnormality. No hernia seen. Impression: Subcutaneous lipoma. No hernia. This document has been electronically signed by: Kelsey Tirado MD on 10/03/2024 12:18:02
--- OUTSIDE RECORDS SUMMARY | 2024-10-03 08:20 | XMS_ITS | Patient Health Record ---
Author Organization [facility] Address [address] [place] [address] Care Team Providers Care Repertoire Manager Name Role Phone Dang Almonte MD Primary Care Provider Toby Hanley [phone] Allergies Allergen (clinical drug ingredient) Drug/Non Drug [...] Problem Status W/U Status Risk Notes Problem 40208247 Epigastric abdom inal pain (R10.13) Active confirmed Problem 167654772 Gastro-esophagea l reflux disease without esophagitis (K21.9) Active confirmed Problem 147018831 Encounter for screening for malignant neoplasm of colon (Z12.11) Active confirmed Problem 472049725 History of adenomatous polyp of colon (Z86.010) Active confirmed Problem 876778861 Gastroesophageal reflux disease, esophagitis presence not specified (K21.9) Active confirmed Problem 06465415 Rectal bleed (K62.5) Active confirmed Plan Of Treatment Future Test Test Name Order Date COLONOSCOPY 03/07/2012 UPPER GI ENDOSCOPY 01/11/2017 COLONOSCOPY 08/10/2018 Insurance Providers Payer Name Payer Address Payer Phone Subscriber Number Group Number Insured Name Patient Relationship to Insured Coverage Start Date Coverage End Date MEDICARE OF [place] [address] [place] [address] [id number] OSMAN OWENS Self - patient is the insured MEDICAID [place] [address] [place] [phone] [id number] OSMAN OWENS Self - patient is the insured Medical (General) History Medical History History ICD Code Denies NM,DM,CVA,Lung disease,renal dise ase Colonoscopy 02/2012--Dr. Dave burton--1 tubular adenoma removed, diverticulosis, internal hemorrhoids EGD in 01/2017--small HH--ga stric biopies neg. for H.pylori, no esophagitis or Francis's esophagus Neg. abdominal ultrasound in 2016 Surgical History Surgery Date(Month/Year) Hernia repair--right inguinal 1996 Shoulder surgery-right 2009
== END 2024-10-03 08:18 | disposition home or self-care (01) ==
LOC: HO.HMGCX 08:17
PROVIDERS: PCP Internal Medicine; Visit Provider Internal Medicine
DX: R19.04 Left lower quadrant abdominal swelling, mass and lump (principal)
CPT/HCPCS: 76857

== ENCOUNTER → 2024-10-03 08:21 | Outpatient (BNV) | payer MEDICARE, MEDICAID, SELFPAY | PROVIDERS: PCP Internal Medicine; Visit Provider Radiology Diagnostic Radiology | DX: D17.1 Benign lipomatous neoplasm of skin and subcutaneous tissue of trunk (principal) | CPT/HCPCS: 76857 ==

== ENCOUNTER 2024-10-11 11:34 | Outpatient (AMB) | payer MEDICARE, MEDICAID, SELFPAY ==
--- OUTSIDE RECORDS SUMMARY | 2024-10-11 11:37 | XMS_ITS | Patient Health Record ---
Author Organization [facility] Address [address] [place] [address] Care Team Providers Care Ice Cream Freezer Assistant Name Role Phone Dang Almonte MD Primary Care Provider Toby Hanley [phone] Allergies Allergen (clinical drug ingredient) Drug/Non Drug [...] Problem Status W/U Status Risk Notes Problem 89183313 Epigastric abdom inal pain (R10.13) Active confirmed Problem 863249588 Gastro-esophagea l reflux disease without esophagitis (K21.9) Active confirmed Problem 126531724 Encounter for screening for malignant neoplasm of colon (Z12.11) Active confirmed Problem 861866360 History of adenomatous polyp of colon (Z86.010) Active confirmed Problem 663688088 Gastroesophageal reflux disease, esophagitis presence not specified (K21.9) Active confirmed Problem 63989219 Rectal bleed (K62.5) Active confirmed Plan Of Treatment Future Test Test Name Order Date COLONOSCOPY 03/07/2012 UPPER GI ENDOSCOPY 01/11/2017 COLONOSCOPY 08/10/2018 Insurance Providers Payer Name Payer Address Payer Phone Subscriber Number Group Number Insured Name Patient Relationship to Insured Coverage Start Date Coverage End Date [place]ARE OF [place] [address] [place] [address] [id number] OSMAN OWENS Self - patient is the insured MED[place] [address] [place] [phone] [id number] OSMAN OWENS Self - patient is the insured Medical (General) History Medical History History ICD Code Denies AR,DM,CVA,Lung disease,renal dise ase Colonoscopy 02/2012--Dr. Dave burton--1 tubular adenoma removed, diverticulosis, internal hemorrhoids EGD in 01/2017--small HH--ga stric biopies neg. for H.pylori, no esophagitis or Francis's esophagus Neg. abdominal ultrasound in 2016 Surgical History Surgery Date(Month/Year) Hernia repair--right inguinal 1996 Shoulder surgery-right 2009
[2024-10-11 12:18] VITALS: BP 140/76; PULSE 88; TEMP 36.6; O2SAT 98; BMI 30.9
--- NOTE | 2024-10-11 12:18 | AM.OFFWIN_ITS ---
Intake Vital Signs 10/11/24 12:18 Height 5 ft 4 in Weight 180 lb BMI 30.9 BP 140/76 H Blood Pressure Location Lt brachial Position Sitting Pulse 88 Pulse Source Pulse Oximeter Temp 97.9 F Temp Source Oral Pulse Oximetry (%) 98 Oxygen Delivery Method Room Air Intake Visit Reasons: EP back pain Intake Note: presents with full back pain, feels shocks of pain Patient Tobacco Use Status: Former Tobacco user Allergies acetaminophen (Percocet) Allergy (Unknown, Verified 10/11/24 12:20) stomach upset oxycodone (Percocet) Allergy (Unknown, Verified 10/11/24 12:20) stomach upset Do you need a note to return to daycare/school/sports/work: No HPI HPI Comments History of Present Illness Details This is a 68-year-old male with a past medical history of hypertension presenting for evaluation of back pain. Patient states he has chronic back pain for the past 1-2 years however his back pain has worsened over the past 2 months. Patient denies having any injury or trauma preceding the worsening of his discomfort. Patient describes mid to low back pain bilaterally without radiation into his buttocks or lower extremities. Patient has taken ibuprofen ?only 1-2 times? without relief of his symptoms. Patient denies any urinary incontinence, bowel incontinence or saddle paresthesias. Patient states that he does feel ?like an electric shock? across his back occasionally when changing positions from lying to sitting. [facility] Medical History Essential hypertension History of adenomatous polyp of colon Obesity (BMI 30.0-34.9) Esophageal dysmotility Immunization refused Iron deficiency anemia GERD without esophagitis Hiatal hernia Tubular adenoma of colon Family History Brother Substance use disorder Brother Substance use disorder Mother Mental health disorder Social History Housing: Apartment Patient Tobacco Use Status: Former Tobacco user e-Cigarette/Vaping Use: Never Used service: No Current occupational status: retired Cognitive needs: No Hearing needs: No Vision needs: Yes Review of Systems Const All systems reviewed & are unremarkable except as noted in HPI and below Reports no additional complaints and Denies fatigue ENT Denies dizziness Musc Reports no additional complaints, Denies abnormal gait, Reports back pain, Denies myalgias, Denies numbness, Denies radiating pain into limb and Reports tingling ( electric shocks ) Skin/Breast Reports system reviewed and no additional complaints, except as documented Neuro Reports no additional complaints, Denies abnormal gait, Denies burning sensations, Denies dizziness, Denies numbness, Denies radicular pain, Denies Sensory deficit (Neuro), Reports tingling ( electric shocks ) and Denies paresthesias Psych Reports as per HPI Endo Reports no additional complaints and Denies fatigue Davidson/Lymph Reports no additional complaints Physical Exam Vital Signs: Last Vital Signs Temp 97.9 F 10/11/24 12:18 Pulse 88 10/11/24 12:18 BP 140/76 H 10/11/24 12:18 Pulse Ox 98 10/11/24 12:18 Oxygen Delivery Method Room Air 10/11/24 12:18 BMI result Body Mass Index 30.9 Const Orientation/consciousness: patient oriented x3 General: Yes Bimanual renal exam normal bilaterally, Yes bladder normal to palpation and Yes no CVA tenderness Back/Spine/Pelvis Back: no CVA tenderness Thoracic/Lumbar Spine: thoracic and lumbar spine normal to inspection, thoraco- lumbar ROM normal, straight leg raise negative bilaterally, paraspinal muscle tenderness on the right greater than left, No thoraco-lumbar ROM limited, No thoracic spinal tenderness and No lumbar spinal tenderness Sacroiliac joints: bilaterally nontender Skin General skin exam: no rashes or lesions noted Neuro General: patient oriented x3, gait normal, moves all extremities, Normal light touch and pain sensation and no focal motor deficits Cognition (Neuro): normal cognition Gait exam (Neuro): Normal gait present and not ataxic Motor exam (neuro): 5/5 motor strength present throughout Sensory Exam: No Sensory deficit (Neuro) Psych Appearance: grossly normal Mental Status: mental status grossly normal Insight: Good insight present (Psych) Judgement: Good judgement present (Psych) Assessment & Plan Assessment & Plan (1) Acute on chronic back pain: Comment: Patient exhibits thoracic paraspinous muscular tenderness and no midline tenderness. Sensation is intact throughout lower extremities bilaterally. Patient will be discharged home with anti-inflammatory and muscle relaxant. Code(s): M54.9 - Dorsalgia, unspecified; G89.29 - Other chronic pain Plan: Naprosyn 500 mg b.i.d. and methocarbamol 750 mg t.i.d. times 7-10 days. Patient is instructed to follow up with his primary care provider as an outpatient. Medications: New naproxen (Naprosyn) 500 mg PO BID 20 tabs 0RF methocarbamol 750 mg PO Q8H 30 tabs 0RF Coding Level of Care Code Est Pt Level 3 (79679) Diagnoses Acute on chronic back pain M54.9; G89.29 Time Spent (min) 20
== END 2024-10-11 13:34 | disposition home or self-care (01) ==
PROVIDERS: PCP Internal Medicine; Visit Provider Physician Assistant
DX: M54.9 Dorsalgia, unspecified (principal); G89.29 Other chronic pain

== ENCOUNTER → 2024-10-11 11:34 | Outpatient (BNVA) | payer MEDICARE, MEDICAID, SELFPAY | PROVIDERS: PCP Internal Medicine; Visit Provider Physician Assistant | DX: M54.9 Dorsalgia, unspecified (principal); G89.29 Other chronic pain | CPT/HCPCS: 99212 ==

== ENCOUNTER 2024-10-24 10:41 | Outpatient (AMB) | payer MEDICARE, MEDICAID, SELFPAY ==
--- NOTE | 2024-10-24 11:10 | A.OFFPC_ITS ---
Vital Signs 10/24/24 11:14 Height 5 ft 4 in Weight 181 lb BMI 31.1 BP 134/90 H Blood Pressure Location Lt brachial Position Sitting Respiration 16 Pulse 67 Pulse Source Pulse Oximeter Temp 97.8 F Temp Source Oral Pulse Oximetry (%) 99 Oxygen Delivery Method Room Air Intake Visit Reasons: f/u walk in per w/i doc Intake Note: Pt is here today f/u walkin for acute back pain: pain with movement Allergies acetaminophen (Percocet) Allergy (Unknown, Verified 10/24/24 11:24) stomach upset oxycodone (Percocet) Allergy (Unknown, Verified 10/24/24 11:24) stomach upset Medication List - Last Reconciled 10/24/24 by Dang Almonte MD cetirizine 10 mg PO BEDTIME methocarbamol 750 mg PO Q8H naproxen (Naprosyn) 500 mg PO BID omeprazole 20 mg PO DAILY PRN Tobacco use date assessed: 10/24/24 Fall risk assessment: No Falls in past year Last assessed Fall Risk: 10/24/24 Dental Screening Dental Screen Date: 08/27/24 HPI f/u walk in per w/i doc HPI Details 68-year-old male with a past medical his tory of hypertension presenting for evaluation of back pain. Patient states he has chronic back pain for the past 1-2 years however his back pain has worsened over the past 2 months. Patient denies having any injury or trauma preceding the worsening of his discomfort. Patient describes mid to low back pain bilaterally without radiation into his buttocks or lower extremities. Patient has taken ibuprofen ?only 1-2 times? without relief of his symptoms. Patient denies any urinary incontinence, bowel incontinence or saddle paresthesias. Patient states that he does feel ?like an electric shock? across his back occasionally when changing positions from lying to sitting. PENDING SALE TO [facility] Medical History Essential hypertension History of adenomatous polyp of colon Obesity (BMI 30.0-34.9) Esophageal dysmotility Immunization refused Iron deficiency anemia GERD without esophagitis Hiatal hernia Tubular adenoma of colon Family History Brother Substance use disorder Brother Substance use disorder Mother Mental health disorder Social History Housing: Apartment Patient Tobacco Use Status: Former Tobacco user e-Cigarette/Vaping Use: Never Used service: No Current occupational status: retired Cognitive needs: No Hearing needs: No Vision needs: Yes Questionnaire Thrive Questionnaire Date Thrive assessed: 07/03/24 I am a: Patient What is your living situation today?: I have a steady place to live Within the past 12 months, did the food you bought not last and you didn't have the money to get more?: Never true Within the past 12 months, did you worry whether your food would run out before you got money to buy more?: Never true Do you have trouble paying for medicines?: No Do you have trouble getting transportation to medical appointments?: No Do you have trouble paying your heating and electricity bill?: No Do you have trouble taking care of your child, family member or friend?: No Do you have trouble with day-to-day activities such as bathing, preparing meals, shopping, managing finances, etc.?: No Are you currently unemployed and looking for a job?: No Are you interested in more education?: No Please select the resources that you would like help with: None THRIVE Score: 0 LE-7 AMB Questionnaire LE-7 Date LE - 7 assessed: 07/03/24 Source: Developed by Drs. Toby Shrestha, Liza Aviles, Hema Vila and colleagues, with an educational alfreda from [email or web address]. Review of Systems Const All systems reviewed & are unremarkable except as noted in HPI and below Physical exam (Primary Care) Vital Signs: Last Vital Signs Temp 97.8 F 10/24/24 11:14 Pulse 67 10/24/24 11:14 Resp 16 10/24/24 11:14 BP 134/90 H 10/24/24 11:14 Pulse Ox 99 10/24/24 11:14 Oxygen Delivery Method Room Air 10/24/24 11:14 BMI result Body Mass Index 31.1 Tobacco/Smoking Status: Tobacco use Status Tobacco use date assessed 10/24/24 10/24/24 11:18 Patient Tobacco Use Status Former Tobacco user 10/24/24 11:11 e-Cigarette/Vaping Use Never Used 10/24/24 11:11 Thrive Assessment: Date of Thrive Assessment Date Thrive assessed 07/03/24 10/24/24 11:11 Const General: no acute distress and alert Nutritional Appearance: obese Orientation/consciousness: patient oriented x3 Neck Neck: Yes full ROM, Yes no lymphadenopathy and Yes supple Thyroid: Thyroid normal Resp Effort & Inspection: normal respiratory effort and able to speak in complete sentences Auscultation: clear to auscultation bilaterally Cardio Rate: regular rate Rhythm: regular rhythm Heart sounds: S1 normal heart sound present and S2 normal heart sound present GI Inspection: Yes obesity Palpation (GI): Soft to palpation, nontender, no guarding and no masses Auscultation: normal bowel sounds Back/Spine/Pelvis Other: Full range of motion of spine, slight tenderness on palpation over paraspinal muscles in the lumbar area, negative straight leg raising sign bilaterally Skin General skin exam: no rashes or lesions noted Neuro General: patient oriented x3, gait normal, moves all extremities, Normal light touch and pain sensation, no focal motor deficits and CN's II-XI intact bilaterally Extrem General: Yes full ROM, Yes no joint enlargement and Yes normal gait Coding Level of Care Code Est Pt Level 4 (95734) Diagnoses Acute on chronic back pain M54.9; G89.29 Assessment & Plan Assessment & Plan (1) Acute on chronic back pain: Code(s): M54.9 - Dorsalgia, unspecified; G89.29 - Other chronic pain Category: Medical Plan: Stop methocarbamol and naproxen, try Salonpas patch with lidocaine, applied to affected area in lower back twice a day as needed. Avoid doing any heavy lifting return to clinic if no improvement of symptoms. Referral for physical therapy ordered Orders: Orders PT Evaluation and Treatment 10/24/24 G89.29 - Other chronic pain, M54.9 - Dorsalgia, unspecified
[2024-10-24 11:14] VITALS: BP 134/90; PULSE 67; RESP 16; TEMP 36.6; O2SAT 99; BMI 31.1
--- OUTSIDE RECORDS SUMMARY | 2024-10-24 12:08 | XMS_ITS | Patient Health Record ---
Author Organization [facility] Address [address] [place] [address] Care Team Providers Care Switchboard Operator Name Role Phone Dang Almonte MD Primary Care Provider Toby Hanley [phone] Allergies Allergen (clinical drug ingredient) Drug/Non Drug [...] Problem Status W/U Status Risk Notes Problem 69359440 Epigastric abdom inal pain (R10.13) Active confirmed Problem 053766971 Gastro-esophagea l reflux disease without esophagitis (K21.9) Active confirmed Problem 759252689 Encounter for screening for malignant neoplasm of colon (Z12.11) Active confirmed Problem 263206711 History of adenomatous polyp of colon (Z86.010) Active confirmed Problem 434477596 Gastroesophageal reflux disease, esophagitis presence not specified (K21.9) Active confirmed Problem 94155150 Rectal bleed (K62.5) Active confirmed Plan Of Treatment Future Test Test Name Order Date COLONOSCOPY 03/07/2012 UPPER GI ENDOSCOPY 01/11/2017 COLONOSCOPY 08/10/2018 Insurance Providers Payer Name Payer Address Payer Phone Subscriber Number Group Number Insured Name Patient Relationship to Insured Coverage Start Date Coverage End Date MEDICARE OF [place] [address] [place] [address] [id number] OSMAN OWENS Self - patient is the insured MED[place] [address] [place] [address] [id number] OSMAN OWENS Self - patient is the [...]
== END 2024-10-24 11:34 | disposition home or self-care (01) ==
LOC: HO.HMCC 10:42
PROVIDERS: PCP Internal Medicine; Visit Provider Internal Medicine
DX: M54.9 Dorsalgia, unspecified (principal); G89.29 Other chronic pain

== ENCOUNTER → 2024-10-24 10:41 | Outpatient (BNVA) | payer MEDICARE, MEDICAID, SELFPAY | PROVIDERS: PCP Internal Medicine; Visit Provider Internal Medicine | DX: M54.9 Dorsalgia, unspecified (principal); G89.29 Other chronic pain | CPT/HCPCS: 99212 ==

== ENCOUNTER 2025-01-27 08:05 | Outpatient (REF) | payer MEDICARE, MEDICAID, SELFPAY ==
--- OUTSIDE RECORDS SUMMARY | 2025-01-27 08:14 | XMS_ITS | Patient Health Record ---
Author Organization [facility] Address [address] [place] [address] Care Team Providers Care Woods Manager Name Role Phone Dang Almonte MD Primary Care Provider Toby Hanley [phone] Allergies Allergen (clinical drug ingredient) Drug/Non Drug Allergy documented on EMR Reaction Allergy Type Onset Date Status acetaminophen / oxycodone Percocet Unknown Drug Allergy Active Reason For Referral No Information Medications Medication SIG (Take, Route, Frequency, Duration) Notes Start Date End Date Status Ibuprofen 200 MG Tablet 1 tablet with food or milk as needed Orally prn Few times a week Active Omeprazole 20 MG Capsule Delayed Release TAKE 1 CAPSULE BY MOUTH EVERY DAY; Duration: 90 Active Proctofoam HC 1-1 % Foam 1 application to affected area Rectal Three times a day; Duration: 10 days 08/29/2018 Active Immunizations Vaccine Route Administration Date Status Comme nts Influenza Unknown 12/26/2017 Refused Influenza Unknown 08/10/2018 Refused Social History Tobacco Use: Social History Observation Description Date Details (start date - stop date) Never Smoker NA - NA Social History Tobacco Use: Social Info Question Answer Notes Tobacco Use/Smoking Patient is a nonsmoker Additional Details Category Social Info Options Details Miscellaneous: Marital status: Occupation: unemployed Caffeine: 2-3 cups per day Section Notes: Nonsmoker; no sig alcohol Nonsmoker; no sig alcohol Nonsmoker; no sig alcohol Problems Problem Type SNOMED Code ICD Code Onset Dates Problem Status W/U Status Risk Notes Problem Epigastric pain (23695250) Epigastric abdominal pain (R10.13) Active confirmed Problem Gastro-esophageal reflux disease without esophagitis (269977974) Gastro-esophageal reflux disease without esophagitis (K21.9) Active confirmed Problem Screening for malignant neoplasm of colon (199071261) Encounter for screening for malignant neoplasm of colon (Z12.11) Active confirmed Problem History of adenomatous polyp of colon (652050465) History of adenomatous polyp of colon (Z86.010) Active confirmed Problem Gastroesophageal reflux disease (366592425) Gastroesophageal reflux disease, esophagitis presence not specified (K21.9) Active confirmed Problem Hemorrhage of rectum and anus (340287070) Rectal bleed (K62.5) Active confirmed Plan Of Treatment Future Test Test Name Order Date COLONOSCOPY 03/07/2012 UPPER GI ENDOSCOPY 01/11/2017 COLONOSCOPY 08/10/2018 Insurance Providers Payer Name Payer Address Payer Phone Subscriber Number Group Number Insured Name Patient Relationship to Insured Coverage Start Date Coverage End Date MEDICARE OF [place] [address] [place] [address] [id number] OSMAN OWENS Self - patient is the insured MEDICAID [facility] [address] [place] [address] [id number] OSMAN OWENS Self - patient is the insured Medical (General) History Medical History History ICD Code Denies [place],DM,CVA,Lung disease,renal dise ase Colonoscopy 02/2012--Dr. Dave burton--1 tubular adenoma removed, diverticulosis, internal hemorrhoids EGD in 01/2017--small HH--ga stric biopies neg. for H.pylori, no esophagitis or Francis's esophagus Neg. abdominal ultrasound in 2017 Surgical History Surgery Date(Month/Year) Hernia repair--right inguinal 1996 Shoulder surgery-right 2009
[2025-01-27 10:48] LABS: MANUAL DIFF FLAG NO
[2025-01-27 11:11] LABS: Hematocrit 45.3 % (42.0-52.0); Hemoglobin 14.9 g/dl (14.0-18.0); Imm Gran Abs Auto 0.02 X10*3/uL (0.00-0.03); Imm Gran Pct Auto 0.3 % (0.0-0.4); Lymphocytes Absolute Auto 1.7 X10*3/uL (1.2-4.9); Mean Corpuscular HGB Conc 32.9 g/dl (31.0-36.0); Mean Corpuscular Hemoglobin 29.1 pg (27.0-33.0); Mean Corpuscular Volume 88.5 fL (80.0-98.0); NRBC Abs Auto 0.000 X10*3/uL (0.0-0.012); NRBC Pct Auto 0.0 /100WBC (0.0-0.2); Platelet Count 262 X10*3/uL (160-400); Red Blood Count 5.12 X10*6/uL (4.60-5.80); White Blood Count 6.2 X10*3/uL (4.8-10.8)
[2025-01-27 11:46] LABS: Alanine Aminotransferase 21 U/L (0-40); Anion Gap 11 (12-20); Aspartate Amino Transferase 25 U/L (5-37); Blood Urea Nitrogen 13 mg/dL (9-16); Calcium 8.9 mg/dL (8.4-10.2); Carbon Dioxide 29 mmol/L (22-29); Chloride 107 mmol/L (96-108); Cholesterol 152 mg/dL (<200); Estimated Glomerular Filt Rate > 60; HDL Cholesterol 39 mg/dL (>40); Potassium 4.2 mmol/L (3.3-5.1); Sodium 143 mmol/L (135-145); Triglycerides 95 mg/dL (<150)
[2025-01-27 11:59] LABS: PSA,Total (Free>4and<10) 0.75 ng/mL (0.00-4.00)
== END 2025-01-27 08:06 | disposition home or self-care (01) ==
LOC: HO.HMGCLDS 08:05
PROVIDERS: PCP Internal Medicine; Visit Provider Internal Medicine
DX: Z01.818 Encounter for other preprocedural examination (principal); I10 Essential (primary) hypertension; K21.9 Gastro-esophageal reflux disease without esophagitis; K44.9 Diaphragmatic hernia without obstruction or gangrene; E66.9 Obesity, unspecified; Z12.5 Encounter for screening for malignant neoplasm of prostate; Z86.0101 Personal history of adenomatous and serrated colon polyps
CPT/HCPCS: 36415; 80048; 80061; 84153; 84450; 84460; 85025

== ENCOUNTER 2025-02-03 13:58 | Outpatient (AMB) | payer MEDICARE, MEDICAID, SELFPAY ==
[2025-02-03 14:06] VITALS: BP 148/74; PULSE 71; RESP 15; TEMP 36.4; O2SAT 99; BMI 31.4
--- NOTE | 2025-02-03 14:06 | AM.OFFVISMDC ---
Intake Vital Signs 02/03/25 14:06 Height 5 ft 4 in Weight 183 lb BMI 31.4 BP 148/74 H Blood Pressure Location Lt brachial Position Sitting Respiration 15 Pulse 71 Pulse Source Pulse Oximeter Temp 97.5 F Temp Source Oral Pulse Oximetry (%) 99 Oxygen Delivery Method Room Air Intake Visit Reasons: AWV - see comments Intake Note: Pt is here today for his AWV: last colonoscipy 08/23/18 Allergies acetaminophen (Percocet) Allergy (Unknown, Verified 02/03/25 14:09) stomach upset oxycodone (Percocet) Allergy (Unknown, Verified 02/03/25 14:09) stomach upset HPI AWV - see comments HPI Details AWV ? 69-year-old male with past medical history of hypertension, GERD, history of adenomatous polyp of colon, here today for his initial annual wellness visit. He is up-to-date with his screening colonoscopy, done by Dr. Diaz 08/23/2018 ,with removal of an adenomatous polyp, repeat colonoscopy due now.? He up-to-date with his prostate cancer screening, with last PSA done 01/27/2025 showing results within normal limits. He also had a fasting lipid panel and fasting blood sugar done at the same day with results within normal limits. He has refused all recommended vaccines. ? Medical / Social History Reviewed? Past Medical History ?Yes . ? [place] of Care / Care Team list updated ?Yes . ? Surgical/Hospitalization History ?Yes . ? Current Medications (including OTC and supplements) ?Yes . ? Family History ?Yes . ? Tobacco Control form ?Yes . ? AUDIT-C (Alcohol use) form ?Yes . ? Illicit drug use in Social History ?Yes . ? Current diagnosis of depression? ?No ? Appropriate PHQ2/PHQ9 completed ?Yes . ? Data entered by ?Bandoleer Packer and reviewed by provider ? Fall Risk ? Fall History? Have you had any falls with injury in the past year? ?No . ? Have you had two or more falls in the past year? ?No . ? Fall Risk Assessment: ?No falls in the past year . ? HRA filled out by the patient, reviewed by Provider and scanned. ? AWV ? Balance? Romberg ? negative ? Tandem walk ?Yes . ? Walk and Turn ?Yes . ? Rise from sit to stand ?Yes . ?Vision? Corrective lens on, [facility], status post cataract surgery ? Vision screen ? up-to-date ?Hearing? Whisper test ?pass . ?Written Plan?Completed. See Patient Documents.? patient has refused to do a healthcare proxy or MOLST form [facility] Medical History Essential hypertension History of adenomatous polyp of colon Obesity (BMI 30.0-34.9) Esophageal dysmotility Immunization refused Iron deficiency anemia GERD without esophagitis Hiatal hernia Tubular adenoma of colon Family History Brother Substance use disorder Brother Substance use disorder Mother Mental health disorder Social History Housing: Apartment Patient Tobacco Use Status: Former Tobacco user e-Cigarette/Vaping Use: Never Used service: No Current occupational status: retired Cognitive needs: No Hearing needs: No Vision needs: Yes Questionnaire Medicare Wellness Checkup [age] What gender do you identify with?: male During the past 4 weeks, how much have you been bothered by emotional problems such as feeling anxious, depressed, irritable, sad or downhearted, and blue?: not at all During the past 4 weeks, has your physical & emotional health limited your social activities with family, friends, neighbors, or groups?: slightly During the past 4 weeks, how much bodily pain have you generally had?: mild pain During the past 4 weeks, was someone available to help you if you needed & wanted help?: yes, as much as I wanted During the past 4 weeks, what was the hardest physical activity you could do for at least 2 minutes?: moderate Can you get to places out of walking distance without help? (For eg., can you travel alone on buses, taxis or drive your car?): Yes Can you go shopping for groceries or clothes without someone's help?: Yes Can you prepare your own meals?: Yes Can you do your housework without help?: Yes Because of any health problems, do you need the help of another person with your personal care needs such as eating, bathing, dressing or getting around the house?: No Can you handle your own money without help?: Yes During the past 4 weeks, how would you rate your health in general?: good During the past 4 weeks how have things been going for you?: very well; could hardly better Are you having difficulties driving your car?: no Do you always fasten your seat belt when you are in a car?: yes, usually During past 4 weeks, have you been bothered by the following: never: Falling or dizzy when standing up, Sexual problems?, Trouble eating well?, Teeth or denture problems? and Problems using the telephone? and seldom: Tiredness or fatigue? Have you fallen 2 or more times in the past year?: No Are you afraid of falling?: No Are you a smoker?: no During the past 4 weeks, how many drinks of wine, beer, or other alcoholic beverages did you have?: no alcohol at all Do you exercise for about 20 minutes 3 or more times a week?: yes, all the time Have you been given information to help with the following?: no: Hazards in your house that might hurt you? and no: Keeping track of your medications? How often do you have trouble taking medicines the way you have been told to take them?: I always take medicine as prescribed How confident are you that you can control & manage most of your health problems?: very confident What is your race?: or origin or descent Mini Mental State Exam (MMSE) Orientation What is the (year) (season) (date) (day) (month)?: year (2024), season (Fall), date (02/03/25), day (Monday) and month () Where are we (state) (county) (town or city) (hospital) (floor)?: state ([facility] ), county ([place]), town or city ([place]) and hospital/clinic ([facility]) Score Score: 9 Activity of Daily Living Bathing - sponge bath, tub bath or shower: receives no assistance (gets in/out by self, if usual bathing means Dressing - getting clothes from closets & drawers, including inner/outer garments & fasteners.: gets clothes & gets completely dressed without help Toileting - going to the 'toilet room' for urine/bowel elimination & cleaning self/arranging clothes: goes to toilet room, cleans self, arranges clothes without help Transfer: moves in & out of bed and chair without help (may use support object) Continence: controls urination/bowel movements completely by self Feeding: feeds self without help Total Score: 0 Information obtained from: patient Using telephone: independent Traveling: independent Shopping: independent Preparing meals: independent Housework: independent Taking medicine: independent Managing money: independent PHQ-9 Over the last 2 weeks, how often have you been bothered by any of the following problems? 1. Little interest or pleasure in doing things: not at all 2. Feeling down, depressed, or hopeless: not at all 3. Trouble falling or staying asleep, or sleeping too much: not at all 4. Feeling tired or having little energy: not at all 5. Poor appetite or overeating: not at all 6. Feeling bad about yourself - or that you are a failure or have let yourself or your family down: not at all 7. Trouble concentrating on things, such as reading the newspaper or watching television: not at all 8. Moving or speaking so slowly that other people could have noticed. Or the opposite - being so fidgety or restless that you have been moving around a lot more than usual: not at all 9. Thoughts that you would be better off or of hurting yourself in some way: not at all Total score: 0 Depression Screening Interpretation: Negative Depression Screening Done: Yes 25793 - PHQ-9 Billing: Yes Source: Developed by Drs. Toby Shrestha, Liza Aviles, Hema Vila and colleagues, with an educational alfreda from [employer]. Physical Exam Vital Signs: Last Vital Signs Temp 97.5 F 02/03/25 14:06 Pulse 71 02/03/25 14:06 Resp 15 02/03/25 14:06 BP 148/74 H 02/03/25 14:06 Pulse Ox 99 02/03/25 14:06 Oxygen Delivery Method Room Air 02/03/25 14:06 BMI result Body Mass Index 31.4 Results Reviewed Results Reviewed: Name: Charo Trejo Age/Sex: 69/M : 1955 Unit#: [id number] Attend Dr: Dang Almonte MD Re01/27/25 Status: DEP REF Location: [facility] Disch: SPEC : [id number] LOULOU: 01/27/25 STATUS: COMP REQ : [id number] RECD: 01/27/[address]: Dang Almonte MD COMP: 01/27/25 ENTERED: 01/27/[address]: ORDERED: CBC Auto Diff Test Result Flag Reference WBC 6.2 4.8-10.8 X10*3/uL RBC 5.12 4.60-5.80 X10*6/uL HGB 14.9 14.0-18.0 g/dl HCT 45.3 42.0-52.0 % MCV 88.5 80.0-98.0 fL MCH 29.1 27.0-33.0 pg MCHC 32.9 31.0-36.0 g/dl RDW 13.8 11.0-16.0 % PLT 262 160-400 X10*3/uL MPV 9.7 9.4-12.4 fL Neut Pct Auto 54.3 45-73 % ImGran Pct Auto 0.3 0.0-0.4 % Lymp Pct Auto 26.8 20-40 % Bowie Pct Auto 7.4 2-11 % Eos Pct Auto 10.6 H 0-4 % Baso Pct Auto 0.6 0-2 % NRBC Pct Auto 0.0 0.0-0.2 /100WBC ANC Neut Abs # 3.4 2.0-8.3 x10*3/uL ImGran Abs Auto 0.02 0.00-0.03 X10*3/uL Lymph Abs Auto 1.7 1.2-4.9 X10*3/uL Bowie Abs Auto 0.5 0.1-1.2 X10*3/uL Eos Abs Auto 0.7 H 0.0-0.4 X10*3/uL Baso Abs Auto 0.0 0.0-0.2 X10*3/uL NRBC Abs Auto 0.000 0.0-0.012 X10*3/uL Name: Charo Trejo Age/Sex: 69/M : 1955 Unit#: [id number] Attend Dr: Dang Almonte MD Re01/27/25 Status: DEP REF Location: [facility] Disch: SPEC : [id number] LOULOU: 01/27/25 STATUS: COMP REQ : [id number] RECD: 01/27/[address]: Dang Almonte MD COMP: 01/27/256 ENTERED: 01/27/[address]: ORDERED: Met Prof Fast, AST, ALT, Lipid Panel Test Result Flag Reference Sodium 143 135-145 mmol/L Potassium 4.2 3.3-5.1 mmol/L CL 107 96-108 mmol/L CO2 29 22-29 mmol/L Gap 11 L 12-20 BUN 13 9-16 mg/dL Creat 1.13 0.5-1.4 mg/dL eGFR > 60 Chronic Kidney Disease: Estimated GFR < 60 mL/min/1.73m2 Severe Kidney Disease: Estimated GFR < 15 mL/min/1.73m2 FBS 94 60-99 mg/dL CA 8.9 8.4-10.2 mg/dL AST (GOT) 25 5-37 U/L ALT (GPT) 21 0-40 U/L Triglyceride 95 <150 mg/dL Desirable Triglyceride: less than 150 mg/dL Borderline High Triglyceride 150-199 mg/dL High Triglyceride: 200-499 mg/dL Very High Triglyceride: greater than or equal to 5OO mg/dL Cholesterol 152 <200 mg/dL Desirable Cholesterol: less than 200 mg/dL Borderline High Cholesterol: 200-239 mg/dL High Cholesterol: greater than 239 mg/dL LDL Calculated 94 <100 mg/dL Desirable LDL: less than 100 mg/dL Near Optimal/Above Optimal LDL: 110-129 mg/dL Borderline High LDL: 130-159 mg/dL High LDL: 160-189 mg/dL Very High LDL: greater than or equal to 190 mg/dL HDL 39 L >40 mg/dL Desirable HDL: greater than 40 mg/dL Note: This HDL assay may give artificially low results in patients with liver disease. Assessment & Plan Assessment & Plan (1) Encounter for initial annual wellness visit (AWV) in Medicare patient: Code(s): Z00.00 - Encounter for general adult medical examination without abnormal findings Plan: medical wellness checklist reviewed, discussed with patient and updated patient was referred to Dr. Diaz for his colonoscopy, which is now overdue. The patient does not want to get any vaccines and does not want to do any advanced directive paperwork (2) History of adenomatous polyp of colon: Code(s): Z86.0101 - Personal history of adenomatous and serrated colon polyps Plan: referral back to Dr. Diaz for his screening colonoscopy, which is overdue (3) Essential hypertension: Code(s): I10 - Essential (primary) hypertension Plan: Blood pressure Not at goal of less than 130/80. Reinforced importance of following a low sodium diet, getting regular exercise, and lowering stress levels. will have him come back for follow-up in 1 month to check blood pressure (4) GERD without esophagitis: Code(s): K21.9 - Gastro-esophageal reflux disease without esophagitis Plan: continue omeprazole 20 mg once a day Orders: Referrals Gastroenterology Referral Z86.0101 - Personal history of adenomatous and serrated colon polyps Quality Reporting (2019) Depression/Bipolar (159/160/161/177) PHQ-9: Total score: 0 Coding Level of Care Code Medicare First (G0438) Diagnoses Encounter for initial annual wellness visit (AWV) in Medicare patient Z00.00 History of adenomatous polyp of colon Z86.0101 Essential hypertension I10 GERD without esophagitis K21.9 Additional Codes PHQ-9 - 80064 - PHQ-9 Billing: Yes ([id number]) Advance Care Planning Advance Care Planning discussion: Declined forms
== END 2025-02-03 14:43 | disposition home or self-care (01) ==
LOC: HO.HMCC 13:58
PROVIDERS: PCP Internal Medicine; Visit Provider Internal Medicine
DX: Z00.00 Encounter for general adult medical examination without abnormal findings (principal); I10 Essential (primary) hypertension; K21.9 Gastro-esophageal reflux disease without esophagitis; Z86.0101 Personal history of adenomatous and serrated colon polyps

== ENCOUNTER → 2025-02-03 13:58 | Outpatient (BNVA) | payer MEDICARE, MEDICAID, SELFPAY | PROVIDERS: PCP Internal Medicine; Visit Provider Internal Medicine | DX: Z13.31 Encounter for screening for depression (principal) | CPT/HCPCS: 96127 ==